=== PATIENT | male | born 1955 | race Caucasian/White ===

== ENCOUNTER 2017-12-22 17:37 | Emergency (ER) | payer OTHER ==
[~2017-12-22] VITALS: Ht 167.6 cm; Wt 54.3 kg
[~2017-12-22 17:37] MED LIST: DOCUSATE SODIU100 MG PO; FLUCONAZOLE100 MG PO; LEVEMIR100 UNIT/2 SC; MACROBID100 MG PO; MIRALAX17 GM PO; NOVOLOG 10100 UNITS/ SC; TAMSULOSIN HCL0.4 MG PO; ZOFRAN ODT4 MG PO
[2017-12-22 19:05] LABS: BASOPHIL (%) 1.3 % (0-1); BASOPHIL COUNT 0.1 K/uL (0-0.1); EOSINOPHIL (%) 3.2 % (0-5); EOSINOPHIL COUNT 0.2 K/uL (0-0.3); HEMATOCRIT 40.4 % (38.0-50.0); HEMOGLOBIN 13.8 G/DL (12.5-16.6); IMMATURE GRANULOCYTE (%) 0.3 % (0.0-0.7); LYMPHOCYTE (%) 20.5 % (15-42); LYMPHOCYTE COUNT 1.4 K/uL (1.0-2.8); MCH 30.1 PG (29.0-34.0); MCHC 34.2 G/DL (30.0-36.0); MCV 88.2 FL (86-99); MONOCYTE (%) 9.7 % (3-12); MONOCYTE COUNT 0.7 K/uL (0-0.8); NEUTROPHIL COUNT 4.5 K/uL (1.8-6.4); PLATELET COUNT 173 K/uL (156-360); RBC DIS.WIDTH-CV 12.2 % (11.8-14.6); RBC DIS.WIDTH-SD 39.4 % (39-53); RED BLOOD COUNT 4.58 M/uL (4.00-5.50); WHITE BLOOD COUNT 6.9 K/uL (4.1-10.2)
[2017-12-22 19:16] LABS: ALBUMIN 4.4 g/dL (3.2-4.8); CHLORIDE 106 mEq/L (99-109); POTASSIUM 4.1 mEq/L (3.7-5.4); SODIUM 139 mEq/L (136-147)
[2017-12-22 19:19] LABS: GLUCOSE 250 mg/dL (70-99); TOTAL PROTEIN 7.5 g/dL (6.4-8.3)
[2017-12-22 19:21] LABS: TOTAL BILIRUBIN 0.9 mg/dL (0.0-1.0)
[2017-12-22 19:22] LABS: ALKALINE PHOSPHATASE 96 IU/L (3-129)
[2017-12-22 19:23] LABS: CREATININE 1.2 mg/dL (0.6-1.3); GFR ESTIMATE (CALCULATED) > 59 mL/min/ (58.99-99999)
[2017-12-22 19:24] LABS: AST (GOT) 21 IU/L (2-34); UREA NITROGEN (BUN) 18 mg/dL (9-23)
[2017-12-22 19:25] LABS: ALT (GPT) 16 IU/L (3-49)
[2017-12-22 19:26] LABS: LIPASE 6 U/L (1.0-51.0)
[2017-12-22] MEDS ORDERED: MIRALAX119 GM PO (21:29)
[2017-12-22] MEDS ORDERED: FLEET ENEMA-AD118 ML PR (21:29)
[2017-12-22 22:15] VITALS: BP 128/74
== END 2017-12-22 22:30 | disposition home or self-care (01) ==
LOC: EME 17:37
PROVIDERS: Emergency Medicine
DX: K59.00 Constipation, unspecified (principal); E11.9 Type 2 diabetes mellitus without complications; Z87.442 Personal history of urinary calculi; H91.91 Unspecified hearing loss, right ear; Z97.4 Presence of external hearing-aid
CPT/HCPCS: 74177; 80053; 83605; 83690; 85025; 87493; 99281; 99285; J7030

== ENCOUNTER 2018-05-10 17:41 | Emergency (ER) | payer OTHER ==
[~2018-05-10] VITALS: Ht 147.3 cm; Wt 47.9 kg
[~2018-05-10 17:41] MED LIST changes: +FLEET ENEMA-AD118 ML PR; +MIRALAX119 GM PO
[2018-05-10 19:26] LABS: HEMATOCRIT 38.9 % (38.0-50.0); HEMOGLOBIN 13.1 G/DL (12.5-16.6); MCH 29.6 PG (29.0-34.0); MCHC 33.7 G/DL (30.0-36.0); PLATELET COUNT 217 K/uL (156-360); RBC DIS.WIDTH-SD 38.9 % (39-53); RED BLOOD COUNT 4.42 M/uL (4.00-5.50); WHITE BLOOD COUNT 10.2 K/uL (4.1-10.2)
[2018-05-10 19:37] LABS: CHLORIDE 104 mEq/L (99-109); POTASSIUM 4.2 mEq/L (3.7-5.4)
[2018-05-10 19:38] LABS: SODIUM 139 mEq/L (136-147)
[2018-05-10 19:39] LABS: GLUCOSE 211 mg/dL (70-99)
[2018-05-10 19:43] LABS: CREATININE 1.1 mg/dL (0.6-1.3); GFR ESTIMATE (CALCULATED) > 59 mL/min/ (58.99-99999)
[2018-05-10 19:44] LABS: UREA NITROGEN (BUN) 17 mg/dL (9-23)
[2018-05-10] MEDS ORDERED: BACTRIM,SEPT1 TABLET PO (21:02)
[2018-05-10 21:37] VITALS: BP 159/61
== END 2018-05-10 21:38 | disposition home or self-care (01) ==
LOC: EME 17:41
PROVIDERS: Physician Assistant
DX: L89.899 Pressure ulcer of other site, unspecified stage (principal); E11.621 Type 2 diabetes mellitus with foot ulcer; Z89.419 Acquired absence of unspecified great toe
CPT/HCPCS: 73630; 80048; 85027; 99281; 99284